=== PATIENT | female | born 1925 | race Asian ===

== ENCOUNTER → 2017-03-15 | Outpatient (CLI) | payer MEDICARE, OTHER ==
[~2017-03-15] MED LIST: ACAR50TA11 PO; AMOX250T PO; ATOR10TA84 PO; CLAR500T3 PO; FOLI-44 PO; ISOS60TA4 PO; METO50 PO; OMEG300C3 PO; OMEP20 PO; REPA1TAB5 PO; SAXA5TAB PO; SPIR25 PO; VALS160T2 PO; VIT1CAPS47 PO
== END | disposition home or self-care (01) ==
LOC: RADPV 12:57
PROVIDERS: ATTEND Internal Medicine
DX: M16.11 Unilateral primary osteoarthritis, right hip (principal)
CPT/HCPCS: 73502; 73552

== ENCOUNTER → 2017-07-20 | Outpatient (CLI) | payer MEDICARE, OTHER | END | disposition home or self-care (01) | LOC: RADPV 13:17 | PROVIDERS: ATTEND Internal Medicine | DX: R91.8 Other nonspecific abnormal finding of lung field (principal); I51.7 Cardiomegaly; I70.0 Atherosclerosis of aorta | CPT/HCPCS: 71046 ==